=== PATIENT | male | born 1970 | race Caucasian/White ===

== ENCOUNTER 2019-11-27 01:35 | Outpatient (CLI) | payer BC, SELFPAY ==
[2019-11-27 19:21] LABS: SARS-CoV-2 RNA PCR Negative
== END 2019-11-27 01:36 | disposition home or self-care (01) ==
LOC: ANHCOVIDDT 01:35
PROVIDERS: PCP Family Medicine; Visit Provider Internal Medicine Critical Care Medicine
DX: R09.89 Other specified symptoms and signs involving the circulatory and respiratory systems (principal); Z20.828 Contact with and (suspected) exposure to other viral communicable diseases
CPT/HCPCS: 87635; C9803; U0003

== ENCOUNTER 2019-11-29 07:50 | Outpatient (CLI) | payer BC, SELFPAY ==
--- NOTE | 2019-12-23 06:16 | SLEEP_ITS ---
Split-night Study DATE OF STUDY: 11/29/2019 ORDERING PHYSICIAN: Bibi Rascon M.D. REASON FOR THE STUDY: Sleep apnea, unspecified. HISTORY: This patient is a 49-year-old male, 66 inches tall, weighing 250 pounds with a body mass index of 40.3 kg/metered square. He wakes himself up with his snoring. His and friends tell him that he stops breathing while he is asleep. He constantly tosses and turns. This has been going on for 15-20 years. He has a difficult time staying awake during the day, including at work. 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 At night, sometimes he takes a Benadryl as a sleep aid. His mother, father, brother and sister all have sleep apnea. He had a sleep study 10 years ago, but did not follow through with getting CPAP. He frequently awakens at night with heartburn, belching, or coughing and rarely awakens from sleep feeling short of breath. He constantly has trouble sleeping with a cold, rarely wakes up gasping for breath at night, but constantly has breathing problems at night reported to him by others. He rarely sweats excessively at night. He does not notice his heart pounding or beating irregularly at night. He constantly falls asleep during the day, never involuntarily or while driving. He does not fall asleep during physical effort. He does not have loss of muscle tone with strong emotion. He constantly has daytime difficulties due to excessive sleepiness. He never feels paralyzed on waking or falling asleep. He rarely has vivid dreamlike scenes upon awakening or falling asleep. He is never afraid to go to sleep. He rarely has nightmares. He occasionally remembers his dreams, occasionally has racing thoughts, frequently feels sad, depressed, and anxious. He occasionally has muscular tension, occasionally notices parts of his body jerking. He never kicks at night. He rarely has crawly achy feelings in his legs at night and occasionally has leg pain during the night. He rarely has morning jaw pain. He rarely grinds his teeth during sleep. He occasionally is bothered by pain during the day as well as is awakened by pain at night. He frequently wakes up feeling stiff in the morning, rarely with sore achy muscles, occasionally with pain in the neck and spine. He falls asleep at work which makes his work situation difficult. He has headaches, bowel disturbances, depression, dizziness, fatigue, panic, memory problems, fainting spells, concentration difficulties, and takes antacids regularly. Normal bedtime is 9 p.m., taking an hour to fall asleep, waking 3-5 times at night to urinate. He also takes heartburn medicine at night and takes a drink of water. He does not wake at any fixed time. On weekends, his bedtime is later 12 midnight or 1 a.m. He avoids social events due to being too sleepy. He sleeps better on days where he does not have to worry about waking up to go to work. His average night of sleep is 6-7 hours. He sometimes takes naps. A short nap may be refreshing. He is drowsy in the morning for 3 hours or longer. He feels better in the evening than other times of day. MEDICAL COMORBIDITIES: Arthritis, back pain, GERD, anxiety, depression, nerve issues in the right leg and his arm. MEDICATIONS: 1. Lorazepam 0.5 mg daily. 2. Citalopram 20 mg a day. 3. Gabapentin 300 mg b.i.d. 4. Heartburn medications over the counter as needed. HABITS: Never smoked tobacco. Caffeine, 3 servings a day. No alcohol or recreational drugs. DESCRIPTION OF THE STUDY: On the Noble Sleepiness Scale, his score is 15. This was conducted as a split-night attended study using the [employer] multiple channel system including EOG, EEG, submental EMG, EKG, nasal and oral airflow using thermistors and nasal pressure sensors, chest and
== END 2019-11-29 07:51 | disposition home or self-care (01) ==
LOC: ANHCSM 07:53
PROVIDERS: PCP Family Medicine; Visit Provider Family Medicine
DX: G47.30 Sleep apnea, unspecified (principal)
CPT/HCPCS: 95811

== ENCOUNTER 2020-11-05 12:18 | Outpatient (CLI) | payer BC, SELFPAY ==
[2020-11-05 12:41] LABS: Basophils Absolute Auto 0.1 K/mm3 (0.0-0.1); Basophils Percent Auto 1.1 % (0.2-1.2); Eosinophils Absolute Auto 0.2 K/mm3 (0-0.3); Eosinophils Percent Auto 2.3 % (0-4.4); Hematocrit 47.2 % (42.0-52.0); Hemoglobin 16.3 g/dL (14.0-18.0); Immature Granulocyte Absolute 0.03 K/mm3 (0.00-0.031); Immature Granulocyte Percent A 0.5 % (0-0.5); Lymphocytes Absolute Auto 2.31 K/mm3 (0.9-3.2); Lymphocytes Percent Auto 35.9 % (18.3-44.2); Mean Corpuscular HGB Conc 34.5 g/dl (32-36); Mean Corpuscular Hemoglobin 29.4 pg (26-34); Mean Corpuscular Volume 85.2 fl (80-100); Mean Platelet Volume 10.3 fl (7.4-10.4); Monocytes Absolute Auto 0.4 K/mm3 (0.1-0.6); Monocytes Percent Auto 6.7 % (2.6-8.5); Neutrophils Absolute Auto 3.4 K/mm3 (1.3-6.7); Neutrophils Percent Auto 53.5 % (45.5-73.1); Platelet Count Result 180 k/mm3 (150-375); Red Blood Count 5.54 M/mm3 (4.6-6.20); Red Cell Distribution Width 13.2 % (11.5-14.5); White Blood Count 6.4 K/mm3 (4.5-10.0)
[2020-11-05 12:58] LABS: Alanine Aminotransferase 26 U/L (4-50); Albumin Level 4.2 g/dL (3.5-5.1); Alkaline Phosphatase 89 U/L (38-126); Anion Gap 7 mmol/L (8-16); Aspartate Amino Transferase 25 U/L (17-59); Bilirubin,Total 0.5 mg/dL (0.2-1.3); Blood Urea Nitrogen 15 mg/dL (9-20); Calcium 9.3 mg/dL (8.4-10.2); Carbon Dioxide 23 mmol/L (22-30); Chloride 110 mmol/L (98-107); Cholesterol 134 mg/dL (0-200); Estimated Glomerular Filt Rate > 60; Glucose 91 mg/dL (65-110); HDL Direct 43 mg/dL; Potassium 4.3 mmol/L (3.4-5.0); Sodium 140 mmol/L (137-145); Triglycerides 91 mg/dL (<150)
[2020-11-05 13:06] LABS: Hemoglobin A1C 5.4 % (<5.7)
[2020-11-05 13:08] LABS: LDL Cholesterol Direct 62 mg/dL
[2020-11-05 13:28] LABS: Prostate Specific Antigen 0.7 ng/mL (< OR = 4.0)
== END 2020-11-05 12:19 | disposition home or self-care (01) ==
PROVIDERS: PCP Family Medicine; Visit Provider Family Medicine
DX: Z00.00 Encounter for general adult medical examination without abnormal findings (principal); Z13.1 Encounter for screening for diabetes mellitus; Z13.220 Encounter for screening for lipoid disorders; Z12.5 Encounter for screening for malignant neoplasm of prostate; F33.0 Major depressive disorder, recurrent, mild
CPT/HCPCS: 36415; 80053; 80061; 83036; 84153; 84443; 85025; G0103

== ENCOUNTER 2021-05-06 00:19 | Day surgery (SDC) | payer BC, SELFPAY ==
[2021-04-09 15:39] VITALS: BMI 37.1
--- NOTE | 2021-04-30 14:14 | PC.NURSE ---
SPOKE WITH PATIENT AND IFFORMATION REVIEWED, PATIENT DENIES ANY CHANGES. TIMES REVIEWED AND ALL QUESTIONS ANSWERED.
--- NOTE | 2021-05-05 14:36 | PM.HPGS ---
History of Present Illness History of Present Illness Consent: Risks, benefits, and alternatives have been discussed and questions answered. Patient agrees to proceed with procedure. Chief complaint: neoplasm screening Narrative: Alvin Brock is a 51 year old male Referred for colon cancer screening Review of Systems Review of Systems: All systems reviewed & are unremarkable except as noted in HPI and below PMFSH Past Medical History Medical History Anxiety Back pain with right-sided radiculopathy Depression Environmental allergies GERD without esophagitis Mild episode of recurrent depressive disorder Sleep apnea in adult Surgical History Surgical History History of adenoidectomy 1974 Family History Family History Other Asthma Diabetes mellitus Family history of coronary artery disease Hypertension Social History Social History Smoking status: Never smoker Second hand tobacco smoke exposure: No Smoking end date: 03/20/99 Alcohol intake: current Alcohol use details: 6 beers consumed occasionally Substance use: never Substance use type: does not use Living arrangements: with family Spiritual care concerns: No Meds Home Medications and Allergies Home Medications Medication Instructions Recorded Confirmed Type citalopram 20 mg tablet 20 mg PO DAILY #90 tablet 10/13/20 04/09/21 Rx lorazepam 0.5 mg tablet 0.5 mg PO DAILY PRN #90 tablet 03/25/21 04/09/21 Rx diphenhydramine HCl [Benadryl] 25 mg PO HS PRN 04/09/21 04/09/21 History Allergies Allergy/AdvReac Type Severity Reaction Status Date / Time doxycycline AdvReac Intermediate Headache Verified 05/06/21 08:37 Exam Resp: Auscultation: clear to auscultation bilaterally Cardio: Rate: regular rate Rhythm: regular rhythm GI: GI Palp: Yes Soft to palpation and No Tenderness to palpation present (GI) Assessment and Plan Assessment and plan (1) Colon cancer screening: Code(s): Z12.11 - Encounter for screening for malignant neoplasm of colon Status: Acute Assessment and Plan: Colonoscopy with possible biopsy or polypectomy or cautery or injection of substances.
[2021-05-06 08:38] VITALS: BP 123/79; PULSE 88; RESP 18; TEMP 36.4; O2SAT 97
[2021-05-06] MEDS: LACTATED RINGERS 1,000 ML 150 ML IV CONT (08:46)
--- NOTE | 2021-05-06 09:01 | WPDANESEPPF ---
Anes - Initial Pre Proc Eval Procedure: Operation Date: 05/06/21 10:45 Proposed Procedures p Screening Colonoscopy - Ruperto Baeza MD Date/Time: 05/06/21 09:01 Surgeon: Ruperto Baeza MD Pre Op Diagnosis: neoplasm screening Patient Data Age: 51 Gender: M Height: 1.68 m Weight: 106.5 kg Last Vital Signs Temp 36.4 C 05/06/21 08:38 Pulse 88 05/06/21 08:38 Resp 18 05/06/21 08:38 BP 123/79 05/06/21 08:38 Pulse Ox 97 05/06/21 08:38 Allergies Allergy/AdvReac Type Severity Reaction Status Date / Time doxycycline AdvReac Intermediate Headache Verified 05/06/21 08:37 Home Medications Medication Instructions Recorded Confirmed Type citalopram 20 mg tablet 20 mg PO DAILY #90 tablet 10/13/20 04/09/21 Rx lorazepam 0.5 mg tablet 0.5 mg PO DAILY PRN #90 tablet 03/25/21 04/09/21 Rx diphenhydramine HCl [Benadryl] 25 mg PO HS PRN 04/09/21 04/09/21 History Patient hx anesthesia problems: none Family hx anesthesia problems: none Results Review: All pre-operative results and documents have been reviewed as part of the pre-operative evaluation. [facility] Past Medical History Medical History Anxiety Back pain with right-sided radiculopathy Depression Environmental allergies GERD without esophagitis Mild episode of recurrent depressive disorder Sleep apnea in adult Surgical History Surgical History History of adenoidectomy 1974 Family History Family History Other Asthma Diabetes mellitus Family history of coronary artery disease Hypertension Social History Social History Smoking status: Never smoker Second hand tobacco smoke exposure: No Smoking end date: 03/20/99 Alcohol intake: current Alcohol use details: 6 beers consumed occasionally Substance use: never Substance use type: does not use Living arrangements: with family Spiritual care concerns: No Anes - Eval Final PreProcedure Day of Procedure 05/06/21 09:01 Patient weight: obese Heart: regular rate and rhythm Lungs: clear to auscultation Airway: Mallampati scale class 1 Neurological: alert and oriented Last oral intake: >/= 8 hours ASA classification: III Emergent: no Anesthetic plan: proceed Anesthesia type and monitoring: general GIVS and standard monitoring Results Review: All pre-operative results and documents have been reviewed as part of the pre-operative evaluation. Informed Consent: The patient's anesthetic plan and its attendant risks and benefits were discussed with the patient/family/POA. Questions were solicited and answers provided to the satisfaction of the patient/family/POA.
[2021-05-06 09:51] VITALS: BP 111/70; PULSE 79; RESP 26; O2SAT 93
[2021-05-06 10:01] VITALS: BP 121/74; PULSE 83; RESP 19; O2SAT 94
[2021-05-06 10:11] VITALS: BP 123/69; PULSE 70; RESP 22; O2SAT 96
== END 2021-05-06 10:15 | disposition home or self-care (01) ==
PROVIDERS: PCP Family Medicine; Visit Provider Internal Medicine Gastroenterology
PROC: 0DJD8ZZ Inspection of Lower Intestinal Tract, Via Natural or Artificial Opening Endoscopic (ICD-10-PCS; CPT 45378; principal; 2021-05-06 10:45)
DX: Z12.11 Encounter for screening for malignant neoplasm of colon (principal); F41.8 Other specified anxiety disorders; E66.9 Obesity, unspecified; Z68.37 Body mass index [BMI] 37.0-37.9, adult
CPT/HCPCS: 45378; J2704; J7120

== ENCOUNTER 2021-05-24 08:19 | Outpatient (CLI) | payer BC, SELFPAY ==
[2021-05-24 08:47] LABS: Basophils Absolute Auto 0.1 K/mm3 (0.0-0.1); Basophils Percent Auto 0.9 % (0.2-1.2); Eosinophils Absolute Auto 0.2 K/mm3 (0-0.3); Eosinophils Percent Auto 2.3 % (0-4.4); Hematocrit 50.1 % (42.0-52.0); Hemoglobin 17.1 g/dL (14.0-18.0); Immature Granulocyte Absolute 0.03 K/mm3 (0.00-0.031); Immature Granulocyte Percent A 0.4 % (0-0.5); Lymphocytes Absolute Auto 2.52 K/mm3 (0.9-3.2); Lymphocytes Percent Auto 36.6 % (18.3-44.2); Mean Corpuscular HGB Conc 34.1 g/dl (32-36); Mean Corpuscular Hemoglobin 30.1 pg (26-34); Mean Corpuscular Volume 88.2 fl (80-100); Mean Platelet Volume 10.4 fl (7.4-10.4); Monocytes Absolute Auto 0.5 K/mm3 (0.1-0.6); Monocytes Percent Auto 6.7 % (2.6-8.5); Neutrophils Absolute Auto 3.7 K/mm3 (1.3-6.7); Neutrophils Percent Auto 53.1 % (45.5-73.1); Platelet Count Result 191 k/mm3 (150-375); Red Blood Count 5.68 M/mm3 (4.6-6.20); Red Cell Distribution Width 13.5 % (11.5-14.5); White Blood Count 6.9 K/mm3 (4.5-10.0)
[2021-05-24 08:58] LABS: Hemoglobin A1C 5.1 % (<5.7)
[2021-05-24 09:17] LABS: Alanine Aminotransferase 28 U/L (4-50); Albumin Level 4.4 g/dL (3.5-5.1); Alkaline Phosphatase 83 U/L (38-126); Anion Gap 5 mmol/L (8-16); Aspartate Amino Transferase 27 U/L (17-59); Bilirubin,Total 0.5 mg/dL (0.2-1.3); Blood Urea Nitrogen 15 mg/dL (9-20); Calcium 9.1 mg/dL (8.4-10.2); Carbon Dioxide 32 mmol/L (22-30); Chloride 102 mmol/L (98-107); Cholesterol 133 mg/dL (0-200); Estimated Glomerular Filt Rate > 60; Glucose 95 mg/dL (65-110); HDL Direct 42 mg/dL; Potassium 4.6 mmol/L (3.4-5.0); Sodium 139 mmol/L (137-145); Triglycerides 92 mg/dL (<150)
[2021-05-24 09:25] LABS: Vitamin D 25 Hydroxy 39.7 ng/mL
[2021-05-24 09:29] LABS: LDL Cholesterol Direct 69 mg/dL
[2021-05-24 11:21] LABS: Free T4 Free Thyroxine Reflex 0.93 ng/dL (0.78-2.19)
[2021-05-24 12:48] LABS: Total Triiodothyronine (T3) 2.53 NG/ML (0.97-1.69)
== END 2021-05-24 08:20 | disposition home or self-care (01) ==
PROVIDERS: PCP Family Medicine; Visit Provider Family Medicine
DX: Z00.00 Encounter for general adult medical examination without abnormal findings (principal); Z13.220 Encounter for screening for lipoid disorders; E55.9 Vitamin D deficiency, unspecified; F41.9 Anxiety disorder, unspecified; F33.0 Major depressive disorder, recurrent, mild; G47.30 Sleep apnea, unspecified; Z13.1 Encounter for screening for diabetes mellitus
CPT/HCPCS: 36415; 80053; 80061; 82306; 83036; 84439; 84443; 84480; 85025

== ENCOUNTER 2024-10-01 13:49 | Outpatient (CLI) | payer OTHER, SELFPAY ==
--- OUTSIDE RECORDS SUMMARY | 2024-10-01 13:54 | XMS_ITS | Clinical Summary ---
Author Organization [facility] Address [address] [place] [address] Phone Care Team Providers Care Floor Waxer Name Role Phone Bibi Rascon MD Primary Care Provider Medications citalopram (CeleXA) 20 mg tablet Take 1 Tablet (20 mg) by mouth daily. 90 Tablet 1 08/14/2024 9:51 AM CDT 5 10/02/19 25 Discontinued Active Problems No known active problems Encounters Date Type Department Care Team Description 09/10/2024 External Device Data [facility] ABSTRACTION Provider, Abstract from Last 3 Months Immunizations Immunization Administration Dates Next Due INFLUENZA VACCINE QUADRIVALE NT 3 YR UP PF IM 07/07/2016 Influenza Seasonal Unspecifi ed Formulation IM 12/29/2021,12/03/2019,12/10/2018 Social History Tobacco Use Types Packs/Day Years Used Date Smoking Tobacco: Never Smokeless Tobacco: Never Alcohol Use Standard Drinks/Week Comments Not Currently 0 (1 standard drink = 0.6 oz pur e alcohol) Feeling Safe Answer Date Recorded Are you in a relationship wi th someone who hurts you emotionally and/or physically? No 02/17/2023 Sex and Gender Information Value Date Recorded Sex Assigned at Not on file Legal Sex Male 9:37 AM CDT Gender Identity Not on file Sexual Orientation Not on file Last Filed Vital Signs Vital Sign Reading Time Taken Comments Blood Pressure 108/70 09/02/2021 8:20 AM CDT Pulse 73 09/02/2021 8:20 AM CDT Temperature 36.7 C (98 F) 09/02/2021 8:20 AM CDT Respiratory Rate 18 09/02/2021 8:20 AM CDT Oxygen Saturation 99% 09/02/2021 8:20 AM CDT Inhaled Oxygen Concentration - - Weight 108.9 kg (240 lb) 09/02/2021 8:20 AM CDT Height 167.6 cm (5' 6) 09/02/2021 8:20 AM CDT Body Mass Index 38.74 09/02/2021 8:20 AM CDT Plan of Treatment Health Maintenance Due Date Last Done Comments DTAP/TDAP/TD VACCINES (1 - Tdap) 1989 HEPATITIS B VACCINES (1 of 3 - 19+ 3-dose series) 1989 COLORECTAL SCREENING 2015 Colorectal Cancer Screening 2015 FIT-DNA Q 3 years 2015 FIT/FOBT Q 1 year 2015 Flex Sig/CT Colonography Q 5 years 2015 ZOSTER VACCINE (1 of 2) 2020 INFLUENZA VACCINE (#1) 2024 3, 12/29/2021, 12/29/2019, [place] [address] [facility] [employer] Member Subscriber Plan / Payer (Ef fective 2024-Present) Name:Alvin Brock Relation to Subscriber:Self Name:Alvin Brock Subscriber ID:Not on file Payer ID:Not on file Type:Not on file Address: [address] Care Teams Floor Waxer Relationship Specialty Start Date End Date Bibi Rascon MD [address] [place] [address] PCP - General Family Practice 03/08/18
[2024-10-01 18:30] LABS: Hematocrit 48.3 % (42.0-52.0); Hemoglobin 16.1 g/dL (14.0-18.0); Immature Granulocyte Percent A 0.4 % (0-0.5); Lymphocytes Absolute Auto 2.10 K/mm3 (0.9-3.2); Mean Corpuscular HGB Conc 33.3 g/dl (32-36); Mean Corpuscular Hemoglobin 29.1 pg (26-34); Mean Corpuscular Volume 87.2 fl (80-100); Nucleated Red Blood Cells Absolute Auto 0.000 K/mm3 (0.0-0.012); Nucleated Red Blood Cells Perc 0.0 % (0.0-0.2); Platelet Count Result 178 k/mm3 (150-375); Red Blood Count 5.54 M/mm3 (4.6-6.20); White Blood Count 8.3 K/mm3 (4.5-10.0)
[2024-10-01 18:34] LABS: Alanine Aminotransferase 38 U/L (6-50); Albumin Level 4.1 g/dL (3.5-5.1); Alkaline Phosphatase 91 U/L (38-126); Anion Gap 4 mmol/L (4-12); Aspartate Amino Transferase 48 U/L (17-59); Bilirubin,Total 0.6 mg/dL (0.2-1.3); Blood Urea Nitrogen 12 mg/dL (9-20); Calcium 9.3 mg/dL (8.4-10.2); Carbon Dioxide 28 mmol/L (22-30); Chloride 106 mmol/L (98-107); Cholesterol 128 mg/dL (0-200); Estimated Glomerular Filt Rate > 60; Glucose 76 mg/dL (65-110); HDL Direct 35 mg/dL; Potassium 4.3 mmol/L (3.4-5.0); Sodium 138 mmol/L (137-145); Total Protein 7.0 g/dL (6.3-8.2); Triglycerides 76 mg/dL (<150)
[2024-10-01 19:04] LABS: Thyroid Stimulating Hormone Reflex 2.970 uIU/mL (0.465-4.68)
[2024-10-01 19:10] LABS: Prostate Specific Antigen 1.2 ng/mL (< OR = 4.0)
[2024-10-01 19:29] LABS: Vitamin B12 907.0 pg/mL (239-931)
[2024-10-01 19:44] LABS: Hemoglobin A1C 5.2 % (<5.7)
== END 2024-10-01 13:50 | disposition home or self-care (01) ==
LOC: ANHGOSHLAB 13:50
PROVIDERS: PCP Family Medicine; Visit Provider Family Medicine
DX: Z00.00 Encounter for general adult medical examination without abnormal findings (principal); E78.5 Hyperlipidemia, unspecified; I10 Essential (primary) hypertension; R73.9 Hyperglycemia, unspecified; E53.8 Deficiency of other specified B group vitamins; E55.9 Vitamin D deficiency, unspecified; F41.9 Anxiety disorder, unspecified; Z12.5 Encounter for screening for malignant neoplasm of prostate
CPT/HCPCS: 36415; 80053; 80061; 82306; 82607; 83036; 84153; 84443; 85025; G0103